=== PATIENT | male | born 1970 | race Caucasian/White ===

== ENCOUNTER 2017-03-24 10:45 | Emergency (ER) | payer OTHER ==
[~2017-03-24] VITALS: Ht 182.9 cm; Wt 117.5 kg
[2017-03-24 10:47] VITALS: Ht 182.9 cm; Wt 117.5 kg
[2017-03-24] MEDS ORDERED: MoRPHine SULFATE 4 MG/ML 1 ML CARP\\VIAL IV STA (11:02)
[2017-03-24] MEDS ORDERED: KETOROLAC TROMETHAMINE 30 MG/ML VIAL IV STA (11:02)
[2017-03-24] MEDS ORDERED: SODIUM CHLORIDE 0.9% 1000ML 1,000 ML IV STA ×2 (11:02→12:33)
--- NOTE | 2017-03-24 11:03 | EMERGENCY ROOM VISIT NOTE ---
History Report prepared by Ramin: David Sexton Under the Supervision of: Dr. Myrna George D.O. First contact with patient: 10:50 Chief Complaint: FLANK PAIN Stated Complaint: BACK PAIN,VOMITING,POSSIBLE KIDNEY STONE History of Present Illness The patient is a 46 year old male who presents to the Emergency Room with complaints of worsening left flank pain since last night. The patient noticed some pain last night which was significantly worse when he woke up this morning. The pain has not moved in location since onset. The patient had Tylenol last night and again at 0600 this morning. The patient vomited secondary to pain. The patient denies abdominal pain, recent changes in his bowel movements, or urinary changes. He denies recent falls or injuries. The patient has a history of kidney stones. The patient had a 1.1 mm stone become septic in 2014 that required surgical intervention. The patient follows up with Dr. Steel (Urology). The patient has had a chronic cough since being ventilated for the surgery. The patient has also been noticing food getting stuck in his throat since intubation. Source of History: patient Onset: last night Position: other (left flank) Timing: worsening Modifying Factors (Relieving): tylenol Associated Symptoms: + vomiting, No abdominal pain, No melena, No hematochezia, No diarrhea, No urinary symptoms Review of Systems See HPI for pertinent positives & negatives. A total of 10 systems reviewed and were otherwise negative. Past Medical & Surgical Medical Problems: (1) H/O renal calculi Family History No pertinent family history Social History Smoking Status: Never Smoker Housing Status: lives with family Current/Historical Medications Scheduled Fluticasone Propionate (Nasal) (Flonase Allergy Relief), 2 SPRAY NA DAILY Ondasetron Odt (Zofran Odt), 4 MG SL Q6H Tamsulosin Hcl (Flomax), 0.4 MG PO DAILY Scheduled PRN Oxycodone/Acetaminophen 5MG/325MG (Percocet 5MG/325MG), 1-2 TABS PO Q4H PRN for Pain Allergies Coded Allergies: No Known Allergies (Verified , 03/24/17) Physical Exam Vital Signs Date Time Temp Pulse Resp B/P (MAP) Pulse Ox O2 Delivery O2 Flow Rate FiO2 03/24/17 15:33 36.5 76 18 184/103 97 03/24/17 13:42 76 18 184/103 97 Room Air 03/24/17 12:13 80 169/89 03/24/17 12:11 66 03/24/17 11:45 67 12 183/100 97 Room Air 03/24/17 10:47 36.5 71 18 195/105 97 Room Air Physical Exam GENERAL: alert, well appearing, well nourished, no distress, non-toxic, uncomfortable appearing EYE EXAM: normal conjunctiva. OROPHARYNX: no exudate, no erythema, lips, buccal mucosa, and tongue normal and mucous membranes are moist NECK: supple, no nuchal rigidity, no adenopathy, non-tender LUNGS: Clear to auscultation. Normal chest wall mechanics HEART: no murmurs, S1 normal and S2 normal ABDOMEN: abdomen soft, non-tender, normo-active bowel sounds, no masses, no rebound or guarding. BACK: No CVA tenderness, pain is not reproducible. SKIN: no rashes and no bruising UPPER EXTREMITIES: upper extremities are grossly normal. LOWER EXTREMITIES: No pitting edema. NEURO EXAM: Normal sensorium, cranial nerves II-XII grossly intact, normal speech, no gross weakness of arms, no gross weakness of legs. Gross sensation intact. Medical Decision & Procedures ER Provider Diagnostic Interpretation: Radiology results have been interpreted by the radiologist and reviewed by me. CT SCAN OF THE ABDOMEN AND PELVIS WITHOUT IV CONTRAST CLINICAL HISTORY: Left flank pain. COMPARISON STUDY: Abdominal CT dated 09/01/2015. TECHNIQUE: CT scan of the abdomen and pelvis is performed from the lung bases to the proximal femora. Images are reviewed in the axial, sagittal, and coronal planes. IV contrast was not administered for this examination. Automated dose control exposure was utilized. CT DOSE: 2243.29 mGy.cm FINDINGS: Lung bases: The heart is normal in size and without pericardial effusion. A 3 mm left lower lobe pulmonary nodule image #98 is unchanged from 2015 and of doubtful significance. There is chronic elevation of the right hemidiaphragm. The lung bases are otherwise clear. There is a tiny hiatal hernia. Liver: The unenhanced liver is enlarged, measuring 22 cm in length. The liver demonstrates diffusely diminished attenuation consistent with hepatic steatosis. There is no intrahepatic biliary ductal dilatation. Gallbladder: Unremarkable. Spleen: The spleen is mildly enlarged measuring 14.5 cm in length. Pancreas: Unremarkable. Adrenal glands: Unremarkable. Kidneys: The unenhanced kidneys are normal in size. There is a 6 mm obstructing calculus at the left ureteropelvic junction seen on axial image #204 at the level of L2. This causes moderate left hydronephrosis. There is mild left-sided perinephric stranding. An additional punctate nonobstructing calculus is seen in the left lower pole. No right renal calculi are identified and there is no right-sided hydronephrosis. There is no evidence of contour deforming renal mass lesion. Abdominal vasculature: The abdominal aorta is normal in course and caliber. Bowel: The small bowel and colon are normal in course and caliber. There are scattered colonic diverticula without CT evidence of acute diverticulitis. The appendix is well-visualized and normal. Peritoneum: There is no intraperitoneal free air or abdominal ascites. There is a small fat-containing umbilical hernia. Lymphadenopathy: None. Pelvic viscera: The bladder, prostate, and seminal vesicles are normal as imaged. There is fatty reconversion along the spermatic cord bilaterally. Skeletal structures: No lytic or blastic lesions are seen. IMPRESSION: 1. There is a 6 mm obstructing calculus at the left ureteropelvic junction. This causes moderate left hydronephrosis. 2. An additional punctate nonobstructing calculus is seen in the left kidney. No right renal calculi are identified. 3. Hepatomegaly and hepatic steatosis. 4. Mild splenomegaly. Electronically signed by: Temo Early M.D. 03/24/2017 11:52 AM Dictated Date/Time: 03/24/2017 11:42 AM Laboratory Results 03/24/17 11:26 Red Blood Count 5.70, Mean Corpuscular Volume 87.0, Mean Corpuscular Hemoglobin 30.4, Mean Corpuscular Hemoglobin Concent 34.9, Mean Platelet Volume 9.4, Neutrophils (%) (Auto) 76.5, Lymphocytes (%) (Auto) 15.8, Monocytes (%) (Auto) 4.5, Eosinophils (%) (Auto) 2.5, Basophils (%) (Auto) 0.3, Neutrophils # (Auto) 5.85, Lymphocytes # (Auto) 1.21, Monocytes # (Auto) 0.34, Eosinophils # (Auto) 0.19, Basophils # (Auto) 0.02 03/24/17 11:26 Test 6/4/17 11:26 03/24/17 13:45 White Blood Count 7.64 K/uL (4.8-10.8) Red Blood Count 5.70 M/uL (4.7-6.1) Hemoglobin 17.3 g/dL (14.0-18.0) Hematocrit 49.6 % (42-52) Mean Corpuscular Volume 87.0 fL (80-100) Mean Corpuscular Hemoglobin 30.4 pg (25-34) Mean Corpuscular Hemoglobin Concent 34.9 g/dl (32-36) Platelet Count 255 K/uL (130-400) Mean Platelet Volume 9.4 fL (7.4-10.4) Neutrophils (%) (Auto) 76.5 % Lymphocytes (%) (Auto) 15.8 % Monocytes (%) (Auto) 4.5 % Eosinophils (%) (Auto) 2.5 % Basophils (%) (Auto) 0.3 % Neutrophils # (Auto) 5.85 K/uL (1.4-6.5) Lymphocytes # (Auto) 1.21 K/uL (1.2-3.4) Monocytes # (Auto) 0.34 K/uL (0.11-0.59) Eosinophils # (Auto) 0.19 K/uL (0-0.5) Basophils # (Auto) 0.02 K/uL (0-0.2) RDW Standard Deviation 43.1 fL (36.4-46.3) RDW Coefficient of Variation 13.4 % (11.5-14.5) Immature Granulocyte % (Auto) 0.4 % Immature Granulocyte # (Auto) 0.03 K/uL (0.00-0.02) Anion Gap 9.0 mmol/L (3-11) Est Creatinine Clear Calc Drug Dose 87.3 ml/min Estimated GFR () 69.3 Estimated GFR (Non- 59.8 BUN/Creatinine Ratio 17.9 (10-20) Calcium Level 9.5 mg/dl (8.5-10.1) Total Bilirubin 2.1 mg/dl (0.2-1) Aspartate Amino Transf (AST/SGOT) 25 U/L (15-37) Alanine Aminotransferase (ALT/SGPT) 45 U/L (12-78) Alkaline Phosphatase 72 U/L (45-117) Total Protein 7.9 gm/dl (6.4-8.2) Albumin 4.8 gm/dl (3.4-5.0) Globulin 3.1 gm/dl (2.5-4.0) Albumin/Globulin Ratio 1.5 (0.9-2) Urine Color YELLOW Urine Appearance CLEAR (CLEAR) Urine pH 6.5 (4.5-7.5) Urine Specific [place] 1.024 (1.000-1.030) Urine Protein NEG (NEG) Urine Glucose (UA) NEG (NEG) Urine Ketones NEG (NEG) Urine Occult Blood 3+ (NEG) Urine Nitrite NEG (NEG) Urine Bilirubin NEG (NEG) Urine Urobilinogen NEG (NEG) Urine Leukocyte Esterase NEG (NEG) Urine WBC (Auto) 0 /hpf (0-5) Urine RBC (Auto) 10-30 /hpf (0-4) Urine Hyaline Casts (Auto) 1-5 /lpf (0-5) Urine Epithelial Cells (Auto) 5-10 /lpf (0-5) Urine Bacteria (Auto) NEG (NEG) Laboratory results per my review. Medications Administered Medications (Trade) Dose Ordered Sig/Joselyn Route Start Time Stop Time Status Last Admin Dose Admin Sodium Chloride 1,000 ml @ 999 mls/hr Q1H1M STAT IV 03/24/17 11:02 03/24/17 12:02 DC 03/24/17 11:02 999 MLS/HR Ketorolac Tromethamine (Toradol Inj) 30 mg NOW STAT IV 03/24/17 11:02 03/24/17 11:04 DC 03/24/17 11:24 30 MG Morphine Sulfate (MoRPHine SULFATE INJ) 4 mg NOW STAT IV 03/24/17 11:02 03/24/17 11:04 DC 03/24/17 11:24 4 MG Tamsulosin HCl (Flomax Cap) 0.4 mg NOW ONCE PO 03/24/17 11:15 03/24/17 11:16 DC 03/24/17 11:23 0.4 MG Ondansetron HCl (Zofran Inj) 4 mg STK-MED ONCE .ROUTE 03/24/17 11:19 03/24/17 11:20 DC 03/24/17 11:19 4 MG Sodium Chloride 1,000 ml @ 999 mls/hr Q1H1M STAT IV 03/24/17 12:33 03/24/17 13:33 DC 03/24/17 12:33 999 MLS/HR Oxycodone/ Acetaminophen (Percocet 5-325mg Tab) 1 tab NOW ONCE PO 03/24/17 14:00 03/24/17 14:01 DC 03/24/17 14:45 1 TAB Ondansetron HCl (Zofran Inj) 4 mg STK-MED ONCE .ROUTE 03/24/17 14:41 03/24/17 14:42 DC 03/24/17 14:46 4 MG ED Course 1055: The patient was evaluated in room C5. A complete history and physical exam was performed. 1102: Morphine Sulfate 4 mg IV, Toradol 30 mg IV, NSS 1000 ml @ 999 mls/hr. 1115: Flomax 0.4 mg PO. 1225: The patient looks better. He has no more pain or nausea. We are still waiting for a urine sample. 1233: NSS 1000 ml @ 999 mls/hr. 1400: Percocet 5/325 mg PO homepack. 1500: Reassessed the patient. Discussed the workup with him. He understands and agrees with the discharge instructions. The patient is ready for discharge. Medical Decision Differential diagnosis: Etiologies such as renal colic, appendicitis, diverticulitis, mesenteric ischemia, aortic pathology, infections, inflammatory bowel disease, PUD, biliary pathology, UTI, as well as others were entertained. Blood pressure screening: Patient was found to have an elevated blood pressure and was referred to their primary doctor for recheck and further treatment. Medication Reconciliation: I attest that I have personally reviewed the patient' s current medication list. Pt sx improved with tx in the ER. Aware of all results and need for follow-up. Discussed sx to watch/return for, hydration, use of meds, f/u regarding BP and other complaints of mild dysphagia with PCP and possible need for additional referral. He verbalized understanding and was agreeable with plan. Impression Primary Impression: Left flank pain Additional Impressions: Renal colic Ureterolithiasis Hypertension Scribe Attestation The scribe's documentation has been prepared under my direction and personally reviewed by me in its entirety. I confirm that the note above accurately reflects all work, treatment, procedures, and medical decision making performed by me. Departure Information Dispostion Home / Self-Care Prescriptions Ondasetron Odt (ZOFRAN ODT) 4 Mg Tab 4 MG SL Q6H for Nausea, #20 TAB Prov: Myrna George, DO 03/24/17 Tamsulosin Hcl (FLOMAX) 0.4 Mg Cap 0.4 MG PO DAILY, #10 CAP Prov: Myrna George, DO 03/24/17 Oxycodone/Acetaminophen 5MG/325MG (PERCOCET 5MG/325MG) Tab 1-2 TABS PO Q4H Y for Pain, #14 TAB Prov: Myrna George, DO 03/24/17 Referrals Lianne Johnson DO (PCP) Forms HOME CARE DOCUMENTATION FORM, IMPORTANT VISIT INFORMATION Patient Instructions [facility] Additional Instructions Please follow up with her family doctor regarding her mildly elevated blood pressure as well as some the other more chronic symptoms you have noted since your admission 2 years ago. These initial symptoms may need to be evaluated by other specialists including a caustic plant worker or harpoon engagement planning operator. Please follow up with your urologist regarding the 6 mm kidney stone found today. Please take the Flomax daily until otherwise instructed by urology. You may use the pain and nausea medications as needed. Please make sure you're drinking plenty of water, not juice/soda/tea. If you develop worsening pain, recurrent vomiting, fevers, or unable to urinate, noticed blood in her urine, or you have any other new concerns, please return the emergency room. Problem Qualifiers Additional Impressions: Hypertension Hypertension type: essential hypertension Qualified Codes: I10 - Essential ( primary) hypertension
[2017-03-24] MEDS ORDERED: TAMSULOSIN HCL 0.4 MG CAP PO ONE (11:15)
[2017-03-24] MEDS ORDERED: ONDANSETRON INJ 2 MG/ML 2 ML VIAL ONE ×2 (11:19→14:41)
[2017-03-24] MEDS ORDERED: PRLSR20 PO (11:23)
[2017-03-24] MEDS ORDERED: AMPH20TA2 PO (11:23)
[2017-03-24] MEDS ORDERED: FLUT0.15 (11:24)
[2017-03-24 11:39] LABS: BASO % 0.3 %; BASO ABS # 0.02 K/uL (0-0.2); COMPLETE YES; EOS % 2.5 %; HEMATOCRIT 49.6 % (42-52); IG% 0.4 %; LYMPH % 15.8 %; LYMPH ABS # 1.21 K/uL (1.2-3.4); MEAN CORPUSCULAR HEMOGLOBIN 30.4 pg (25-34); MEAN CORPUSCULAR HGB CONC 34.9 g/dl (32-36); MEAN PLATELET VOLUME 9.4 fL (7.4-10.4); MONO % 4.5 %; NEUT % 76.5 %; PLATELET COUNT 255 K/uL (130-400); WHITE BLOOD COUNT 7.64 K/uL (4.8-10.8)
--- NOTE | 2017-03-24 11:53 | DIAGNOSTIC IMAGING REPORT ---
CT SCAN OF THE ABDOMEN AND PELVIS WITHOUT IV CONTRAST CLINICAL HISTORY: Left flank pain. COMPARISON STUDY: Abdominal CT dated 09/01/2015. TECHNIQUE: CT scan of the abdomen and pelvis is performed from the lung bases to the proximal femora. Images are reviewed in the axial, sagittal, and coronal planes. IV contrast was not administered for this examination. Automated dose control exposure was utilized. CT DOSE: 2243.29 mGy.cm FINDINGS: Lung bases: The heart is normal in size and without pericardial effusion. A 3 mm left lower lobe pulmonary nodule image #98 is unchanged from 2015 and of doubtful significance. There is chronic elevation of the right hemidiaphragm. The lung bases are otherwise clear. There is a tiny hiatal hernia. Liver: The unenhanced liver is enlarged, measuring 22 cm in length. The liver demonstrates diffusely diminished attenuation consistent with hepatic steatosis. There is no intrahepatic biliary ductal dilatation. Gallbladder: Unremarkable. Spleen: The spleen is mildly enlarged measuring 14.5 cm in length. Pancreas: Unremarkable. Adrenal glands: Unremarkable. Kidneys: The unenhanced kidneys are normal in size. There is a 6 mm obstructing calculus at the left ureteropelvic junction seen on axial image #204 at the level of L2. This causes moderate left hydronephrosis. There is mild left-sided perinephric stranding. An additional punctate nonobstructing calculus is seen in the left lower pole. No right renal calculi are identified and there is no right-sided hydronephrosis. There is no evidence of contour deforming renal mass lesion. Abdominal vasculature: The abdominal aorta is normal in course and caliber. Bowel: The small bowel and colon are normal in course and caliber. There are scattered colonic diverticula without CT evidence of acute diverticulitis. The appendix is well-visualized and normal. Peritoneum: There is no intraperitoneal free air or abdominal ascites. There is a small fat-containing umbilical hernia. Lymphadenopathy: None. Pelvic viscera: The bladder, prostate, and seminal vesicles are normal as imaged. There is fatty reconversion along the spermatic cord bilaterally. Skeletal structures: No lytic or blastic lesions are seen. IMPRESSION: 1. There is a 6 mm obstructing calculus at the left ureteropelvic junction. This causes moderate left hydronephrosis. 2. An additional punctate nonobstructing calculus is seen in the left kidney. No right renal calculi are identified. 3. Hepatomegaly and hepatic steatosis. 4. Mild splenomegaly. Electronically signed by: Temo Early M.D. 03/24/2017 11:52 AM Dictated Date/Time: 03/24/2017 11:42 AM
[2017-03-24 11:57] LABS: BUN/CREATININE RATIO 17.9 (10-20); CALCIUM 9.5 mg/dl (8.5-10.1); CREATININE 1.4 mg/dl (0.60-1.40); POTASSIUM 4.5 mmol/L (3.5-5.1)
[2017-03-24 12:00] LABS: ALB/GLOB RATIO 1.5 (0.9-2)
[2017-03-24] MEDS ORDERED: OXYCODONE/ACETAMINOPHEN 5-325 TAB PO ONE (14:00)
[2017-03-24] MEDS ORDERED: OXYC-57 PO (14:01)
[2017-03-24] MEDS ORDERED: TAMS0.4C38 PO (14:01)
[2017-03-24] MEDS ORDERED: ONDA4TAB10 SL (14:01)
[2017-03-24 14:54] LABS: URINE APPEARANCE CLEAR (CLEAR); URINE BILIRUBIN NEG (NEG); URINE COLOR YELLOW; URINE NITRITE NEG (NEG); URINE PH 6.5 (4.5-7.5); URINE SPECIFIC GRAVITY 1.024 (1.000-1.030); UROBILINOGEN NEG (NEG); ZZUR CULT IF INDIC CLEAN CATCH NO
[2017-03-24 14:55] LABS: MANUAL MICROSCOPIC REQUIRED? NO; REVIEW REQ? NO
[2017-03-24 15:33] VITALS: BP 184/103; PULSE 76; TEMP 36.5; O2SAT 97
== END 2017-03-24 15:30 | disposition home or self-care (01) ==
LOC: C.EDB 10:47 → C.EDC 15:30
DX: N23 Unspecified renal colic (principal); N20.1 Calculus of ureter; I10 Essential (primary) hypertension; Z87.442 Personal history of urinary calculi

== ENCOUNTER → 2017-03-27 | Outpatient (CLI) | payer OTHER ==
[~2017-03-27] MED LIST: AMPH20TA2 PO; FLUT0.15; ONDA4TAB10 SL; OXYC-57 PO; PRLSR20 PO; TAMS0.4C38 PO
--- NOTE | 2017-03-27 11:58 | DIAGNOSTIC IMAGING REPORT ---
KUB CLINICAL HISTORY: N20.0 [id number] COMPARISON STUDY: CT dated 03/24/2017 FINDINGS: Unchanging 5 mm obstructing calculus distal left ureter. Bowel pattern is nonobstructive. No additional calcifications are identified. IMPRESSION: No change in a 5 mm obstructing calculus distal left ureter Electronically signed by: Jairo Walls M.D. 03/27/2017 11:57 AM Dictated Date/Time: 03/27/2017 11:55 AM
== END | disposition home or self-care (01) ==
LOC: C.RAD 11:18
PROVIDERS: ATTEND Urology
DX: N20.0 Calculus of kidney (principal)

== ENCOUNTER → 2017-03-27 | Outpatient (CLI) | payer OTHER ==
--- NOTE | 2017-03-27 17:33 | DIAGNOSTIC IMAGING REPORT ---
CHEST 2 VIEWS ROUTINE CLINICAL HISTORY: Preprocedure evaluation. COMPARISON STUDY: No previous studies for comparison. FINDINGS: Lung volumes are at the lower limits of normal. There is no consolidation to suggest pneumonia. No pneumothorax or pleural effusion is present. Cardiac size is at the upper limits of normal. There is no evidence of pulmonary edema. IMPRESSION: 1. No acute cardiopulmonary findings. 2. Top normal cardiac size. Electronically signed by: Eliezer Love M.D. 03/27/2017 5:31 PM Dictated Date/Time: 03/27/2017 5:30 PM
== END | disposition home or self-care (01) ==
LOC: C.CPL 15:22
PROVIDERS: ATTEND Urology
DX: N20.0 Calculus of kidney (principal)

== ENCOUNTER → 2017-04-01 | Outpatient (CLI) | payer OTHER ==
[~2017-04-01] MED LIST changes: -AMPH20TA2 PO; -PRLSR20 PO
== END | disposition home or self-care (01) ==
LOC: C.LABSPEC 17:09
PROVIDERS: ATTEND Urology
DX: N20.0 Calculus of kidney (principal)

== ENCOUNTER → 2017-04-01 | Outpatient (CLI) | payer OTHER ==
--- NOTE | 2017-04-01 13:30 | DIAGNOSTIC IMAGING REPORT ---
KUB HISTORY: N20.0 Nephrolithiasis COMPARISON: KUB 03/27/2017. Abdomen and pelvis CT 03/24/2017 FINDINGS: The bowel gas pattern is unremarkable. There are no dilated loops of small bowel to suggest an obstruction. Stable calcification within the left deep pelvis is consistent with a phlebolith. No renal or ureteral calculi identified. No pneumoperitoneum or pneumatosis. IMPRESSION: No renal or ureteral stones. Electronically signed by: Kobe Sheridan M.D. 04/01/2017 1:28 PM Dictated Date/Time: 04/01/2017 1:25 PM
== END | disposition home or self-care (01) ==
LOC: C.RAD 13:05
PROVIDERS: ATTEND Urology
DX: N20.0 Calculus of kidney (principal)

== ENCOUNTER → 2017-04-12 | Outpatient (CLI) | payer OTHER ==
[~2017-04-12] MED LIST changes: -TAMS0.4C38 PO
[2017-04-12 12:30] LABS: BASO % 0.4 %; BASO ABS # 0.02 K/uL (0-0.2); COMPLETE YES; EOS % 5.6 %; HEMATOCRIT 48.3 % (42-52); IG% 0.2 %; LYMPH % 33.3 %; LYMPH ABS # 1.84 K/uL (1.2-3.4); MEAN CELL VOLUME 87.5 fL (80-100); MEAN CORPUSCULAR HEMOGLOBIN 28.8 pg (25-34); MEAN CORPUSCULAR HGB CONC 32.9 g/dl (32-36); MONO % 7.2 %; NEUT % 53.3 %; PLATELET COUNT 222 K/uL (130-400); RED BLOOD COUNT 5.52 M/uL (4.7-6.1); WHITE BLOOD COUNT 5.52 K/uL (4.8-10.8)
[2017-04-12 13:21] LABS: ALT/SGPT 39 U/L (12-78); BLOOD UREA NITROGEN 21 mg/dl (7-18); CALCIUM 8.9 mg/dl (8.5-10.1); CARBON DIOXIDE 26 mmol/L (21-32); CHLORIDE 108 mmol/L (98-107); CHOLESTEROL 220 mg/dl (0-200); GLUCOSE 101 mg/dl (70-99); POTASSIUM 4.4 mmol/L (3.5-5.1); SODIUM 141 mmol/L (136-145)
[2017-04-12 13:29] LABS: ALB/GLOB RATIO 1.5 (0.9-2); ALKALINE PHOSPHATASE 58 U/L (45-117); AST/SGOT 16 U/L (15-37); CHOLESTEROL/HDL RATIO 5.9; HDL CHOLESTEROL 37 mg/dl; LDL CHOLESTEROL CALCULATED 128 mg/dl; TRIGLYCERIDES 273 mg/dl (0-150); VERY LOW DENSITY LIPOPROT CALC 55 mg/dl
== END | disposition home or self-care (01) ==
LOC: C.LABPBG 10:24
PROVIDERS: ATTEND Nurse Practitioner Family
DX: Z13.1 Encounter for screening for diabetes mellitus (principal); Z13.220 Encounter for screening for lipoid disorders

== ENCOUNTER → 2017-05-14 | Outpatient (CLI) | payer OTHER ==
--- NOTE | 2017-05-14 08:56 | DIAGNOSTIC IMAGING REPORT ---
(BARIUM SWALLOW) ESOPHAGUS CLINICAL HISTORY: R13.10 [id number] COMPARISON STUDY: None FLUOROSCOPY TIME: 1.4 minutes. FINDINGS: Patient initiated swallowing function well. There is no evidence for aspiration. The esophagus is normal in course and caliber. Gastroesophageal junction is unremarkable. Patient ingested the barium tablet which passed easily to the stomach IMPRESSION: Negative study The above report was generated using voice recognition software. It may contain grammatical, syntax or spelling errors. Electronically signed by: Jairo Walls M.D. 05/14/2017 8:54 AM Dictated Date/Time: 05/14/2017 8:46 AM
== END | disposition home or self-care (01) ==
LOC: C.RAD 08:16
PROVIDERS: ATTEND Registered Nurse
DX: R13.10 Dysphagia, unspecified (principal)

== ENCOUNTER → 2017-09-18 | Outpatient (CLI) | payer OTHER ==
--- NOTE | 2017-09-18 14:08 | DIAGNOSTIC IMAGING REPORT ---
KUB CLINICAL HISTORY: Nephrolithiasis. FINDINGS: 2 AP supine abdominal radiographs are compared to study dated 04/01/2017 and correlated with abdominal CT dated 03/24/2017. There is a nonobstructed abdominal bowel gas pattern. There is no radiographic evidence of nephrolithiasis on today's examination. A large phlebolith in left hemipelvis is unchanged. The bony structures appear intact. IMPRESSION: There is no radiographic evidence of nephrolithiasis on today's examination. Electronically signed by: Temo Early M.D. 09/18/2017 2:07 PM Dictated Date/Time: 09/18/2017 2:06 PM
== END | disposition home or self-care (01) ==
LOC: C.RAD 13:18
PROVIDERS: ATTEND Urology
DX: N20.0 Calculus of kidney (principal)

== ENCOUNTER → 2017-09-27 | Outpatient (CLI) | payer OTHER ==
[~2017-09-27] MED LIST changes: -ONDA4TAB10 SL; -OXYC-57 PO
--- NOTE | 2017-09-27 14:19 | DIAGNOSTIC IMAGING REPORT ---
EXAMINATION: RENAL ULTRASOUND CLINICAL HISTORY: N20.0 Nephrolithiasis COMPARISON STUDY: CT scan dated 03/24/2017 FINDINGS: The right kidney measures 11.2 cm. The left kidney measures 11.9 cm.. There is no evidence of hydronephrosis. No solid renal masses are visualized. There are 2 echogenic foci within the lower pole the left kidney demonstrating twins artifact. Tiny calculi are suspected. No bladder abnormalities are visualized. Bilateral ureteral jets were visualized. IMPRESSION : 1. Probable left-sided nephrolithiasis 2. No evidence of hydronephrosis Electronically signed by: Benjamin Hurst M.D. 09/27/2017 2:17 PM Dictated Date/Time: 09/27/2017 2:16 PM
--- NOTE | 2017-09-27 14:30 | DIAGNOSTIC IMAGING REPORT ---
KUB CLINICAL HISTORY: N20.0 Nephrolithiasis nephrocalcinosis COMPARISON STUDY: 09/18/2017 FINDINGS: The soft tissues, psoas shadows, renal outlines and intestinal gas pattern appear normal. There is no evidence for bowel obstruction. No abnormal abdominal calcifications are seen. No evidence for nephrocalcinosis. IMPRESSION: No evidence for nephrocalcinosis. No change from the prior study. The above report was generated using voice recognition software. It may contain grammatical, syntax or spelling errors. Electronically signed by: Jairo Walls M.D. 09/27/2017 2:29 PM Dictated Date/Time: 09/27/2017 2:28 PM
== END | disposition home or self-care (01) ==
LOC: C.ULTR 13:43
PROVIDERS: ATTEND Nurse Practitioner Adult Health
DX: N20.0 Calculus of kidney (principal)

== ENCOUNTER → 2017-09-27 | Outpatient (CLI) | payer OTHER | END | disposition home or self-care (01) | LOC: C.LABSPEC 14:45 | PROVIDERS: ATTEND Nurse Practitioner Adult Health | DX: N20.0 Calculus of kidney (principal) ==

== ENCOUNTER → 2017-11-28 | Outpatient (CLI) | payer OTHER ==
[~2017-11-28] MED LIST changes: +ACET-1256 PO; -FLUT0.15; +FLUT0.15 NAE
[2017-11-28 17:50] LABS: BLOOD UREA NITROGEN 17 mg/dl (7-18); CARBON DIOXIDE 26 mmol/L (21-32); GLUCOSE 102 mg/dl (70-99); POTASSIUM 4.5 mmol/L (3.5-5.1); SODIUM 134 mmol/L (136-145)
[2017-11-28 17:55] LABS: URIC ACID 4.5 mg/dl (2.6-7.2)
== END | disposition home or self-care (01) ==
LOC: C.LABPBG 12:11
PROVIDERS: ATTEND Urology
DX: N20.0 Calculus of kidney (principal)